=== PATIENT | male | born 1960 | race Caucasian/White ===

== ENCOUNTER → 2020-11-28 | Outpatient (CLI) | payer BC ==
[~2020-11-28] MED LIST: CIPR500T78 PO; DOCU100T7 PO; GABA-486 PO; GLIM1TAB4 PO; GLIMEPIRIDE; LISI20TA26 PO; MTF500T PO; SIMV20TA26 PO
--- NOTE | 2020-11-28 11:48 | Diagnostic Imaging Report ---
PROCEDURE: CT urinary tract, rule out kidney stone. TECHNIQUE: Multiple contiguous axial images were obtained through the abdomen and pelvis without the use of intravenous contrast. Auto Exposure Controls were utilized during the CT exam to meet ALARA standards for radiation dose reduction. INDICATION: Left lower quadrant pain and microhematuria. Patient has history of kidney stones. COMPARISON: Comparison is made to prior CT from 06/12/2014. FINDINGS: The lung bases are clear. The liver is unremarkable. Gallbladder is unremarkable. No biliary ductal dilatation is seen. The pancreas and spleen are unremarkable. No adrenal mass is detected. Right kidney is unremarkable. There is a tiny approximately 2 mm nonobstructing calculus in the lower pole of the left kidney. The left ureter is dilated but no definite obstructing calculus is identified. Right ureter is unremarkable. No bladder calculi are identified on today's study. Aorta is nonaneurysmal. The small and large bowel loops are normal in caliber. There is no ascites. There are postop changes to the anterior abdominal wall. IMPRESSION: Tiny nonobstructing left renal calculus. There does appear to be dilatation of the left renal collecting system and left ureter traced into the pelvis but no definite obstructing calculus is identified. There is a calcific density lying adjacent to the distal left ureter on image 95 which has been present on prior exams and may represent a phlebolith. Dictated by: Dictated on workstation # [id number]
== END ==
LOC: RAD 11:00
PROVIDERS: ATTEND Family Medicine
DX: N20.0 Calculus of kidney (principal)
CPT/HCPCS: 74176

== ENCOUNTER → 2020-12-18 | Outpatient (CLI) | payer BC ==
--- NOTE | 2020-12-18 15:26 | Diagnostic Imaging Report ---
INDICATION: Left renal calculus. EXAMINATION: KUB at 2:14 PM. FINDINGS: There are postop changes from a low abdominal ventral hernia repair. The bowel gas pattern is normal. There are no pathologic masses or calcifications seen. IMPRESSION: No acute abnormalities in the abdomen. There are no renal calculi seen. Dictated by: Dictated on workstation # [id number]
== END ==
LOC: RAD 13:53
PROVIDERS: ATTEND Urology
DX: N20.0 Calculus of kidney (principal)
CPT/HCPCS: 74018

== ENCOUNTER 2021-10-17 08:56 | Outpatient (CLI) | payer BC ==
[~2021-10-17] VITALS: Ht 177.8 cm; Wt 68.2 kg
[2021-10-17] MEDS ORDERED: METF-397 PO (10:30)
[2021-10-17] MEDS ORDERED: ATOR20TA66 PO (10:31)
[2021-10-17] MEDS ORDERED: ASPI-999 PO (10:31)
[2021-10-17] MEDS ORDERED: EMPA10TA PO (10:31)
== END 2021-10-17 10:38 | disposition home or self-care (01) ==
LOC: PREOP 08:56
PROVIDERS: ATTEND Surgery
DX: Z01.818 Encounter for other preprocedural examination (principal)

== ENCOUNTER 2021-10-20 07:19 | Day surgery (SDC) | payer BC ==
[~2021-10-20] VITALS: Ht 177.8 cm; Wt 68.2 kg
[~2021-10-20 07:19] MED LIST changes: +ASPI-999 PO; +ATOR20TA66 PO; +EMPA10TA PO; +METF-397 PO
[2021-10-20] MEDS ORDERED: LACTATED RINGERS 1,000 ML IV STA (07:27)
[2021-10-20] MEDS ORDERED: LACTATED RINGERS 1,000 ML IV ONE (07:29)
[2021-10-20 07:30] VITALS: BP 120/75
[2021-10-20] MEDS ORDERED: PROPOFOL INJECTION 50 ML IV ONE (08:21)
--- NOTE | 2021-10-20 08:24 | Progress Note-Pre Operative ---
Pre-Operative Progress Note H&P Reviewed The H&P was reviewed, patient examined and no changes noted. Time Seen by Provider: 08:20 Date H&P Reviewed: Oct 20, 2021 Time H&P Reviewed: 08:20 Pre-Operative Diagnosis: screening colon MAIRA MARTELL DO Oct 20, 2021 08:24
[2021-10-20 09:15] VITALS: BP 86/56
[2021-10-20 09:20] VITALS: BP 86/55
[2021-10-20 09:25] VITALS: BP 97/63
--- NOTE | 2021-10-20 09:25 | Progress Note-Post Operative ---
Post-Operative Progess Note Surgeon (s)/Book Coverer (s) Surgeon MAIRA MARTELL DO Book Coverer: ABRAHAM Queen Pre-Operative Diagnosis screening colon Post-Operative Diagnosis Diverticula int hemorrhoids Procedure & Operative Findings Date of Procedure 10/20/21 Procedure Performed/Findings Colonoscopy PROCEDURE NOTE: After informed consent was obtained, the patient was brought to the endoscopy suite, placed in bed in left lateral decubitus position. He was administered IV sedation by the DIVISION ORDER ANALYST who then monitored his vitals the entire time, heart rate, blood pressure and pulse ox and the scope was inserted, pushed all the way to about 150 cm and pushed into the cecum, took a picture of appendiceal orifice and noted the ileo-cecal valve. On the way in I took a picture of Diverticula. Started to slowly withdrew the scope insufflating to look circumferentially at the spaulding; starting in the cecum, up the ascending colon to the hepatic flexure, then down the transverse colon, splenic flexure, into the descending colon down in the sigmoid and then into the rectal vault and retroflexed the scope. Took picture of the internal hemorrhoids. The patient tolerated the procedure. He was recovered in endoscopy suite. Anesthesia Type IV sedation by DIVISION ORDER ANALYST Estimated Blood Loss Estimated blood loss (mL): none Specimens/Packing Specimens Removed none MAIRA MARTELL DO Oct 20, 2021 09:25
--- NOTE | 2021-10-20 09:25 | Anesthesia-General Post-Op ---
MAC Patient Condition Mental Status/LOC: Same as Preop Cardiovascular: Satisfactory Nausea/Vomiting: Absent Respiratory: Satisfactory Pain: Controlled Complications: Absent Post Op Complications Complications None Follow Up Care/Instructions Patient Instructions None needed. Anesthesiology Discharge Order Discharge Order Patient is doing well, no complaints, stable vital signs, no apparent adverse anesthesia problems. No complications reported per nursing. JUAN C DICKENS CRNA Oct 20, 2021 09:25
--- NOTE | 2021-10-20 09:26 | Endoscopy Discharge Instruct ---
Endo Procedure/Findings Findings 1.: Diverticulosis 2.: Internal Hemorrhoids Discharge Instructions - Activity: You might feel a little sleepy until tomorrow. This is due to the medicine you received to relax you. Until tomorrow, you should: NOT drive a car, operate machinery or power tools. NOT drink any alcoholic beverages. NOT make any important decisions or sign importortant papers. Do not return to work until tomorrow, unless otherwise instructed. Resume previous activities tomorrow. Diet: Start by taking liquids. If you tolerate liquids, advance to solid food. 1.: [place] in 10 years Notify Physician - If you experience excessive bleeding, unusual abdominal pain, fever, or chest pain, contact your doctor immediately. MAIRA MARTELL DO Oct 20, 2021 09:26
[2021-10-20 09:45] VITALS: BP 100/77
[2021-10-20 09:59] VITALS: BP 100/77
== END 2021-10-20 10:00 | disposition home or self-care (01) ==
LOC: ENDO 07:19
PROVIDERS: ATTEND Surgery
DX: Z12.11 Encounter for screening for malignant neoplasm of colon (principal); K64.8 Other hemorrhoids; K57.30 Diverticulosis of large intestine without perforation or abscess without bleeding; E11.9 Type 2 diabetes mellitus without complications; E78.00 Pure hypercholesterolemia, unspecified; I10 Essential (primary) hypertension; Z79.84 Long term (current) use of oral hypoglycemic drugs; Z79.899 Other long term (current) drug therapy; Z79.82 Long term (current) use of aspirin; Z90.89 Acquired absence of other organs

== ENCOUNTER → 2022-04-03 | Outpatient (CLI) | payer BC ==
--- NOTE | 2022-04-03 12:07 | Diagnostic Imaging Report ---
INDICATION: Fall with right foot pain. TIME OF EXAM: 11:24 AM 3 views right foot were obtained. Metatarsals are intact. Midfoot and hindfoot are unremarkable apart from a plantar calcaneal spur. Phalanges are intact. No fractures are seen. IMPRESSION: No acute abnormalities detected. Dictated by: Dictated on workstation # [id number]
== END ==
LOC: RAD 10:51
PROVIDERS: ATTEND Family Medicine
DX: M79.671 Pain in right foot (principal); W19.XXXA Unspecified fall, initial encounter
CPT/HCPCS: 73630

== ENCOUNTER → 2022-10-15 | Outpatient (CLI) | payer BC ==
--- NOTE | 2022-10-15 11:37 | Diagnostic Imaging Report ---
MRI LT UPPER EXT JOINT W/O Technique: Multiplanar, multisequence MR imaging of the left shoulder was performed without contrast. Comparison: None available. Indication: Left shoulder pain Findings: Rotator cuff: Low-grade partial-thickness articular sided tear in the anterior aspect the supraspinatus involves less than 25% of the thickness. The infraspinatus, teres minor and subscapularis are all intact. No rotator cuff muscle atrophy. There is some feathery edema like signal within the inferior aspect the supraspinatus which may represent low-grade muscle strain. Glenoid labrum: No chondrolabral separation or paralabral cyst. Long head of biceps: Long head of biceps is normally positioned within the bicipital groove. The intracapsular segment is intact. Bones and cartilage: Humeral head is normal in morphology without fracture or focal osseous lesion. No glenohumeral chondromalacia. The acromioclavicular joint is normal in alignment without significant degenerative change. Soft tissues: No glenohumeral joint effusion. No MRI findings to suggest adhesive capsulitis. Mild subacromial/subdeltoid bursitis. IMPRESSION: 1. Low-grade partial-thickness articular sided tear of the supraspinatus. 2. Long head of biceps is intact. 3. Mild subacromial/subdeltoid bursitis. Dictated by: Dictated on workstation # [id number]
== END ==
LOC: RAD 08:51
PROVIDERS: ATTEND Orthopaedic Surgery
DX: M75.112 Incomplete rotator cuff tear or rupture of left shoulder, not specified as traumatic (principal)
CPT/HCPCS: 73221

== ENCOUNTER → 2022-11-13 | Outpatient (CLI) | payer BC ==
--- NOTE | 2022-11-13 11:37 | Diagnostic Imaging Report ---
CLINICAL INDICATION: Patient fell and fractured his left elbow. Patient now has left arm weakness and numbness. EXAM: MRI of the cervical spine performed without IV contrast. Sequences include sagittal T2, sagittal T1, sagittal T2 fat-sat, and axial T2. COMPARISON: None. FINDINGS: There is no acute cervical spine fracture or dislocation. Limited visualization of the posterior fossa is unremarkable. There is localized cord deformity seen at the C4-C5, C5-C6, and C6-C7 levels due to degenerative disk disease. There is no definite abnormal cord signal seen, as visualized. There is no significant paraspinal soft tissue abnormality. Limited visualization of the posterior fossa is unremarkable. There are degenerative spurs involving the cervical spine and facet arthropathy. C1-C2: There are degenerative spurs involving the atlantoodontoid interval anteriorly. There is no significant central canal narrowing. C2-C3: There is mild diffuse disk bulge and minimal ligamentum flavum buckling. There is mild bilateral facet arthropathy. There is a right-sided uncinate spur with at least moderate right neural foramen narrowing. There is no significant left neural foramen narrowing or central canal narrowing. C3-C4: There is mild diffuse disk bulge with disk spurs extending posteriorly and into the foraminal regions bilaterally. There is ligamentum flavum buckling and mild bilateral facet arthropathy. There is severe right neural foramen narrowing and at least mild left neural foramen narrowing. There is severe central canal stenosis. C3-C4: There is diffuse disk bulge and moderate loss of disk space height and bilateral uncinate spurs. There is severe bilateral neural foraminal narrowing and severe central canal stenosis. C5-C6: There is diffuse disk bulge with bilateral uncinate spurs. There is severe central canal stenosis and severe bilateral neural foraminal narrowing. C6-C7: There are broad posterior disk spurs and bilateral uncinate spurs. There is mild bilateral facet arthropathy. There is severe central canal stenosis and severe bilateral neural foraminal narrowing. C7-T1: There is no significant central canal or neural foramen narrowing. IMPRESSION: 1: There is severe multilevel cervical spine degenerative disk disease due to diffuse disk bulges, disk spurs, uncinate spurs and facet arthropathy. There is severe central canal stenosis and severe bilateral neural foraminal narrowing seen at the C3-C4, C4-C5, C5-C6, and C6-C7 levels. 2: There is at least moderate right C2-C3 neural foramen narrowing due to uncinate spurs. Dictated by: Dictated on workstation # [id number]
== END ==
LOC: RAD 09:11
PROVIDERS: ATTEND Orthopaedic Surgery
DX: M47.22 Other spondylosis with radiculopathy, cervical region (principal); M48.02 Spinal stenosis, cervical region; M50.10 Cervical disc disorder with radiculopathy, unspecified cervical region; S52.032D Displaced fracture of olecranon process with intraarticular extension of left ulna, subsequent encounter for closed fracture with routine healing; M75.02 Adhesive capsulitis of left shoulder; W19.XXXD Unspecified fall, subsequent encounter
CPT/HCPCS: 72141

== ENCOUNTER → 2022-12-02 | Outpatient (CLI) | payer BC ==
--- NOTE | 2022-12-02 09:50 | Diagnostic Imaging Report ---
PROCEDURE: CT left upper extremity without contrast. TECHNIQUE: Multiple contiguous axial images were obtained through the left upper extremity without the use of intravenous contrast. Auto Exposure Controls were utilized during the CT exam to meet ALARA standards for radiation dose reduction. INDICATION: Left elbow pain. COMPARISON: None. FINDINGS: There are post surgical changes from prior internal fixation of the proximal ulna with a posterior plate and multiple screws. No hardware fracture or hardware loosening is appreciated. Bone density appears low about the elbow. The distal humerus and the proximal radius appear intact. There is significant streak artifact about the proximal ulna but alignment appears normal and there does appear to be some bony bridging at the fracture site. There are mild degenerative changes in the elbow. There is a small elbow joint effusion. No focal muscular atrophy is seen. IMPRESSION: 1. Internal fixation of the proximal left ulna with no hardware complication seen. There does appear to be bone bridging at the olecranon fracture. 2. Mild degenerative changes in the left elbow with a small joint effusion. Dictated by: Dictated on workstation # [id number]
== END ==
LOC: RAD 08:45
PROVIDERS: ATTEND Orthopaedic Surgery
DX: M19.022 Primary osteoarthritis, left elbow (principal)
CPT/HCPCS: 73200